=== PATIENT | male | born 1975 | race Two or more races ===

== ENCOUNTER 2021-11-15 08:00 | Day surgery (SDC) | payer OTHER ==
[~2021-11-15] VITALS: Ht 180.3 cm; Wt 91.2 kg
[2021-11-15] MEDS ORDERED: TRAM1TAB98 (15:48)
[2021-11-15] MEDS ORDERED: DICLOFENAC SODI75 MG (15:48)
[2021-11-15] MEDS ORDERED: LEVOFLOXACIN750 MG (15:48)
[2021-11-15] MEDS ORDERED: CIPROFLOXACIN500 MG (15:48)
[2021-11-15] MEDS ORDERED: METRONIDAZOLE500 MG (15:48)
[2021-11-15] MEDS ORDERED: LANSOPRAZOLE30 MG (15:48)
== END 2021-11-15 10:00 | disposition home or self-care (01) ==
LOC: CIR.AMB 08:00 → ER 08:12 → CIR.AMB 10:00 → SEC-K 12:42 → ER 12:42 → EDSTATUS 13:00 → SEC-K 15:23 → O/R 15:23
PROVIDERS: ATTEND Emergency Medicine Hospice and Palliative Medicine
DX: K61.0 Anal abscess (principal); Z20.822 Contact with and (suspected) exposure to COVID-19